=== PATIENT | female | born 1970 | race Hispanic/Latino ===

== ENCOUNTER 2017-11-01 08:08 | Emergency (ER) | payer MEDICARE ==
[2017-11-01 08:18] VITALS: BP 115/78
[2017-11-01] MEDS ORDERED: TYLENOL PO ONE (09:44)
[2017-11-01] MEDS ORDERED: BOOSTRIX IM ONE (09:45)
--- NOTE | 2017-11-01 09:46 | Emergency Department Report ---
ED Head Trauma HPI - General Chief complaint: Fall Stated complaint: HEAD LACERATION Time Seen by Provider: 11/01/17 09:34 Source: patient, family Mode of arrival: Ambulatory Limitations: Physical Limitation - History of Present Illness Initial comments: 47-year-old female past medical history hypertension, schizophrenia presents with laceration to back of scalp status post mechanical fall. Patient has visible large scalp hematoma and laceration back of right scalp. Patient is awake alert and conversant. Accompanied by brush machine setter and father at bedside. Also complaining of left-sided shoulder ache with visible bruising left shoulder. No reports of loss of consciousness per father at bedside who states he was with her when she fell. Patient fell while exiting her home. The back of her head on a wooden guard rail. Tetanus vaccine not up to date. No other complaints reported by patient. Fall occurred today. MD Complaint: head injury, head pain, fall -: This morning Mechanism of Injury: mechanical fall Location: parietal Loss of Consciousness: no Previous Trauma to this Area: No Place: home Severity: moderate Severity scale (0 -10): 7 Consistency: constant Other Injuries: laceration (back of upper scalp) - Related Data Home Medications Medication Instructions Recorded Confirmed Last Taken Divalproex Dr [Depakote] 250 mg PO BID 07/23/13 07/23/13 Unknown Haloperidol [Haldol] 5 mg PO BID 07/23/13 07/23/13 Unknown OLANzapine [ZyPREXA] 5 mg PO QDAY 07/23/13 07/23/13 Unknown Polyethylene Glycol 3350 [Miralax] 510 gm PO 07/23/13 07/23/13 Unknown Previous Rx's Medication Instructions Recorded Last Taken Type Ibuprofen [Motrin 800 MG tab] 800 mg PO TID PRN #30 tablet 07/23/13 Unknown Rx traMADol [Ultram 50 MG tab] 50 mg PO Q6HR PRN #10 tablet 07/23/13 Unknown Rx Bacitracin Zinc Oint [Antibiotic 1 applicatio TP BID #1 tube 11/01/17 Unknown Rx Oint] Cephalexin [Keflex] 500 mg PO Q12HR #14 cap 11/01/17 Unknown Rx HYDROcodone/ACETAMINOPHEN [[place] 1 each PO Q6H PRN #10 tablet 11/01/17 Unknown Rx 5-325 Tablet] Ibuprofen [Motrin] 800 mg PO Q8HR PRN #30 tablet 11/01/17 Unknown Rx Allergies/Adverse reactions: Allergies Allergy/AdvReac Type Severity Reaction Status Date / Time No Known Allergies Allergy Unverified 07/23/13 14:17 ED Review of Systems ROS: Stated complaint: HEAD LACERATION Other details as noted in HPI Constitutional: denies: chills, fever Eyes: denies: eye pain, eye discharge, vision change ENT: denies: ear pain, throat pain Respiratory: denies: cough, shortness of breath, wheezing Cardiovascular: denies: chest pain, palpitations Endocrine: no symptoms reported Gastrointestinal: denies: abdominal pain, nausea, diarrhea Genitourinary: denies: urgency, dysuria, discharge Musculoskeletal: denies: back pain, joint swelling, arthralgia Skin: denies: rash, lesions Neurological: denies: headache, weakness, paresthesias Psychiatric: denies: anxiety, depression Hematological/Lymphatic: denies: easy bleeding, easy bruising ED Past Medical Hx - Past Medical History Previous Medical History?: Yes Hx Hypertension: Yes Additional medical history: MR - Surgical History Past Surgical History?: No - Social History Smoking Status: Never Smoker Substance Use Type: Prescribed - Medications Home Medications: Home Medications Medication Instructions Recorded Confirmed Last Taken Type Divalproex Dr [Depakote] 250 mg PO BID 07/23/13 07/23/13 Unknown History Haloperidol [Haldol] 5 mg PO BID 07/23/13 07/23/13 Unknown History Ibuprofen [Motrin 800 MG tab] 800 mg PO TID PRN #30 tablet 07/23/13 Unknown Rx OLANzapine [ZyPREXA] 5 mg PO QDAY 07/23/13 07/23/13 Unknown History Polyethylene Glycol 3350 [Miralax] 510 gm PO 07/23/13 07/23/13 Unknown History traMADol [Ultram 50 MG tab] 50 mg PO Q6HR PRN #10 tablet 07/23/13 Unknown Rx Bacitracin Zinc Oint [Antibiotic 1 applicatio TP BID #1 tube 11/01/17 Unknown Rx Oint] Cephalexin [Keflex] 500 mg PO Q12HR #14 cap 11/01/17 Unknown Rx HYDROcodone/ACETAMINOPHEN [[place] 1 each PO Q6H PRN #10 tablet 11/01/17 Unknown Rx 5-325 Tablet] Ibuprofen [Motrin] 800 mg PO Q8HR PRN #30 tablet 11/01/17 Unknown Rx ED Physical Exam - General Limitations: Physical Limitation General appearance: alert, in no apparent distress - Expanded Head Exam Expanded Head exam: Present: laceration (deep 3-4 inch laceration to right upper parietal scalp) 1 - Laceration here Y shaped - Eye Eye exam: Present: normal appearance, PERRL, EOMI - ENT ENT exam: Present: mucous membranes moist - Neck Neck exam: Present: normal inspection, full ROM - Respiratory Respiratory exam: Present: normal lung sounds bilaterally. Absent: respiratory distress - Cardiovascular Cardiovascular Exam: Present: regular rate, normal rhythm. Absent: systolic murmur, diastolic murmur, rubs, gallop - GI/Abdominal GI/Abdominal exam: Present: soft, normal bowel sounds - Extremities Exam Extremities exam: Present: normal inspection - Expanded Upper Extremity Exam Right General: Present: other Shoulder Exam: Present: full ROM (range of motion left shoulder preserved abduction abduction and internal and external rotation. Patient is moving independently), tenderness, ecchymosis (tenderness and ecchymosis overlying the left upper shoulder deltoid region) Upper Arm exam: Present: normal inspection, full ROM Elbow exam: Present: normal inspection, full ROM Forearm Wrist exam: Present: normal inspection, full ROM Hand Wrist exam: Present: normal inspection, full ROM Neuro motor exam: Present: wrist extension intact, thumb opposition intact, thumb IP flexion intact, thumb adduction intact, fingers 2-5 abduction intact Vascular: Present: normal capillary refill (distal capillary refill less than one second all fingers patient is moving all of her fingers independently) - Back Exam Back exam: Present: normal inspection - Neurological Exam Neurological exam: Present: alert, oriented X3, CN II-XII intact, normal gait - Psychiatric Psychiatric exam: Present: normal affect, normal mood - Skin Skin exam: Present: warm, dry, intact, normal color. Absent: rash ED Course Vital Signs 11/01/17 08:14 Temperature 97.3 F L Pulse Rate 84 Respiratory 16 Rate Blood Pressure 115/78 O2 Sat by Pulse 96 Oximetry - Laceration /Wound Repair Head Wound Location: head (back of right parietal scalp) Wound Length (cm): 6 Wound's Depth, Shape: linear, irregular Irrigated w/ Saline (ccs): 100 Betadine Prep?: Yes Anesthesia: 1% Lidocaine Volume Anesthetic (ccs): 6 Wound Debrided: minimal Sterile Dressing Applied?: Yes (triple abx with gauze over) Progress: Area infiltrated with lidocaine without epinephrine. Good local anesthesia achieved. 16 tuan placed overlying scalp laceration with good closure. Wound irrigated with approximately 100 mL of saline before closure. Procedure tolerated well minimal bleeding. - Medical Decision Making A/P: Head injury, scalp laceration, left clavicle fracture 1- tetanus updated today. Course of Keflex. Triple antibiotic ointment. Patient's family members and home nurse instructed on wound care 2- 16 tuan placed in scalp with good closure of wound 3- patient experienced a left clavicle fracture as a result of fall. Patient placed in left shoulder sling and referred to orthopedics 4- CT head shows no intracranial hemorrhage or skull fracture, CT neck shows no acute injury. Patient is ranging her left shoulder without significant difficulty. - NEXUS Criteria Focal neurological deficit present: No Midline spinal tenderness present: No Altered level of consciousness: No Intoxication present: No Distracting injury present: Yes NEXUS results: C-Spine cannot be cleared clinically by these results. Imaging is required. Critical care attestation.: If time is entered above; I have spent that time in minutes in the direct care of this critically ill patient, excluding procedure time. ED Disposition Clinical Impression: Laceration of head Qualifiers: Encounter type: initial encounter Location of open wound of head: scalp Foreign body presence: without foreign body Qualified Code(s): S01.01XA - Laceration without foreign body of scalp, initial encounter Closed fracture of distal clavicle Qualifiers: Encounter type: initial encounter Fracture alignment: nondisplaced Laterality: left Qualified Code(s): S42.035A - Nondisplaced fracture of lateral end of left clavicle, initial encounter for closed fracture Abrasion head Qualifiers: Encounter type: initial encounter Qualified Code(s): S00.91XA - Abrasion of unspecified part of head, initial encounter Fall with injury Qualifiers: Encounter type: initial encounter Qualified Code(s): W19.XXXA - Unspecified fall, initial encounter Disposition: DC-01 TO HOME OR SELFCARE Is pt being admited?: No Does the pt Need Aspirin: No Condition: Stable Instructions: Clavicle Fracture (ED), Laceration (ED), Staple Care (ED), RICE Therapy (ED) Additional Instructions: tuan to be removed in 7 days Prescriptions: Bacitracin Zinc Oint [Antibiotic Oint] 1 applicatio TP BID #1 tube Cephalexin [Keflex] 500 mg PO Q12HR #14 cap HYDROcodone/ACETAMINOPHEN [[place] 5-325 Tablet] 1 each PO Q6H PRN #10 tablet PRN Reason: Pain Ibuprofen [Motrin] 800 mg PO Q8HR PRN #30 tablet PRN Reason: Pain Referrals: VIOLET MARSH MD [Staff Physician] - 3-5 Days [facility] [Provider Group] - 3-5 Days Forms: Accompanied Note Time of Disposition: 12:20
--- NOTE | 2017-11-01 10:22 | Cat Scan Report ---
CT HEAD WITHOUT CONTRAST INDICATION: Status post fall. Posterior parietal hematoma with laceration. COMPARISON: 04/19/2012. FINDINGS: Noncontrast head CT again demonstrates symmetric, age-appropriate ventricles and sulci without acute or recent infarct, hemorrhage, mass effect or midline shift. No abnormal extra axial fluid collections. Normal posterior fossa with preserved basilar cisterns. Normal eye globes. Severe, completely opacified right and moderately opacified imaged left maxillary sinus with mild heterogeneously hyperdense intrinsic contents, possibly inspissated secretions and/or fungal. Right more than left ethmoid and frontal sinus mucosal thickening also seen. Chronic bilateral sphenoid sinusitis with mild mucosal thickening on the left. Mild debris/secretions along the nasal passages may also be present. Mild rightward nasal septal deviation anteriorly. Mild left mastoid tip air cell opacification is new. Clear right mastoid air cells. Hyperostosis frontalis interna/mild diffuse calvarial hyperostosis again noted. New high parietal scalp hematomas, right more than left as on axial image 50. Mild ICA atherosclerotic calcifications. CONCLUSION: 1. No acute intracranial CT abnormality. Chronic pansinusitis noted, though with improved overall aeration involving the frontal, ethmoid and sphenoid sinuses, as described. 2. Mild left mastoiditis is new. 3. Right more than left parietal scalp post traumatic changes. Thank you for the opportunity to participate in this patient's care.
[2017-11-01] MEDS ORDERED: TRIPLE ANTIBIOTIC TP ONE (10:40)
--- NOTE | 2017-11-01 11:17 | XRay Report ---
LEFT SHOULDER RADIOGRAPHS INDICATION: Status post fall. Left shoulder bruising and pain. COMPARISON: None similar. FINDINGS: Frontal and Y views of the left shoulder demonstrate a comminuted left distal clavicular fracture with cortical offset of approximately 3 mm craniocaudal on the frontal view. Acromioclavicular articulation may though be preserved. Mild supraclavicular edema possible. Normal humeral head, well positioned against the glenoid. Normal imaged left lung, ribs and scapula. CONCLUSION: Acute left distal clavicular comminuted, mildly displaced fracture, as described. Thank you for the opportunity to participate in this patient's care.
--- NOTE | 2017-11-01 12:09 | Cat Scan Report ---
FINAL REPORT EXAM: CT CERVICAL SPINE WO CON HISTORY: nexus + TECHNIQUE: A noncontrast CT of the cervical spine was performed. Coronal and sagittal reformatted images were obtained. PRIORS: None. FINDINGS: There is no evidence of acute fracture. Vertebral body heights and alignment are maintained. There is no evidence of significant spinal stenosis. There is prominent facet arthropathy mostly involving upper to mid cervical spine, right worse than left. Facet enlargement causes some mild to moderate neuroforaminal narrowing at C3-4 and C4-5. IMPRESSION: There is no evidence of cervical spine fracture or subluxation. Facet arthropathy/enlargement involving upper to mid cervical levels. This causes mild to moderate neuroforaminal narrowing on the right.
== END 2017-11-01 12:43 | disposition home or self-care (01) ==
LOC: ED 08:08
DX: S42.035A Nondisplaced fracture of lateral end of left clavicle, initial encounter for closed fracture (principal); S01.01XA Laceration without foreign body of scalp, initial encounter; S00.91XA Abrasion of unspecified part of head, initial encounter; I10 Essential (primary) hypertension; W19.XXXA Unspecified fall, initial encounter; Y93.89 Activity, other specified; Y99.8 Other external cause status; Y92.098 Other place in other non-institutional residence as the place of occurrence of the external cause
CPT/HCPCS: 70450; 72125; 90471; 90715; A6250

== ENCOUNTER 2017-12-09 09:09 | Outpatient (CLI) | payer MEDICARE ==
--- NOTE | 2017-12-09 09:54 | XRay Report ---
LEFT SHOULDER, 3 VIEWS: History: Nondisplaced fracture of the lateral end of the left clavicle. Findings: The comminuted distal left clavicle fracture is unchanged in position and alignment since 11/01/17. There is increased calcified callus at the fracture site consistent with mild interval healing. Fracture lines remain evident. No joint pathology is appreciated. The soft tissues are unremarkable. Impression: Healing distal left clavicle fracture as described.
== END 2017-12-09 09:10 | disposition home or self-care (01) ==
LOC: XRAY 09:09
PROVIDERS: ATTEND Orthopaedic Surgery
DX: S42.035D Nondisplaced fracture of lateral end of left clavicle, subsequent encounter for fracture with routine healing (principal); X58.XXXD Exposure to other specified factors, subsequent encounter

== ENCOUNTER 2019-05-28 11:39 | Emergency (ER) | payer MEDICARE ==
--- NOTE | 2019-05-28 12:14 | Emergency Department Report ---
ED General Adult HPI - General Chief complaint: Medical Clearance Stated complaint: LOW B/P Time Seen by Provider: 05/28/19 11:57 Source: patient, RN notes reviewed Mode of arrival: Ambulatory Limitations: Other (patient developmentally delayed. History obtained from patient and caregiver) - History of Present Illness Initial comments: Majority of history obtained from patient's caregiver, Ms. Belkis Monzon; [phone] Past medical history: Developmental delay, mental retardation, schizophrenia This is a 49-year-old female. This patient is not known to this provider previously. She is brought to the hospital by caregiver for general evaluation. Apparently, patient was in her daycare program, where she typically resides Tuesday through Tuesday, 8-5, and as per her caregiver, ate some cake, and shortly after eating cake, changed color, became pale, may have been drooling, and appeared to be off balance. This is now resolved. Her caregiver believes that the episode lasted for a few seconds, but she is not sure. There was no co nvulsive activity. There is no discrete loss of consciousness. The patient currently denies headache, neck pain, chest pain, abdominal pain, shortness of breath. The patient indicates normal defecation and bowel movements last night. The patient has no complaint at this time. She is smiling and laughing. Her documented caregiver states that the patient appears to be back to her baseline. -: Sudden Consistency: now resolved Improves with: none Worsens with: none Associated Symptoms: denies other symptoms - Related Data Home Medications Medication Instructions Recorded Confirmed Last Taken Divalproex Dr [Depakote] 250 mg PO BID 07/23/13 07/23/13 Unknown Haloperidol [Haldol] 5 mg PO BID 07/23/13 07/23/13 Unknown OLANzapine [ZyPREXA] 5 mg PO QDAY 07/23/13 07/23/13 Unknown Polyethylene Glycol 3350 [Miralax] 510 gm PO 07/23/13 07/23/13 Unknown Previous Rx's Medication Instructions Recorded Last Taken Type Ibuprofen [Motrin 800 MG tab] 800 mg PO TID PRN #30 tablet 07/23/13 Unknown Rx traMADol [Ultram 50 MG tab] 50 mg PO Q6HR PRN #10 tablet 07/23/13 Unknown Rx Bacitracin Zinc Oint [Antibiotic 1 applicatio TP BID #1 tube 11/01/17 Unknown Rx Oint] HYDROcodone/ACETAMINOPHEN [[place] 1 each PO Q6H PRN #10 tablet 11/01/17 Unknown Rx 5-325 Tablet] Ibuprofen [Motrin] 800 mg PO Q8HR PRN #30 tablet 11/01/17 Unknown Rx cephALEXin [Keflex] 500 mg PO Q12HR #14 cap 11/01/17 Unknown Rx Allergies Allergy/AdvReac Type Severity Reaction Status Date / Time No Known Allergies Allergy Unverified 07/23/13 14:17 ED Review of Systems ROS: Stated complaint: LOW B/P Other details as noted in HPI Constitutional: denies: fever Eyes: denies: eye discharge ENT: denies: epistaxis Respiratory: denies: cough Cardiovascular: denies: chest pain, syncope Gastrointestinal: denies: abdominal pain, hematemesis, melena, hematochezia Genitourinary: denies: dysuria Musculoskeletal: denies: back pain Skin: denies: lesions Neurological: denies: headache ED Past Medical Hx - Past Medical History Hx Hypertension: Yes Additional medical history: MR - Social History Smoking Status: Never Smoker Substance Use Type: Prescribed - Medications Home Medications: Home Medications Medication Instructions Recorded Confirmed Last Taken Type Divalproex Dr [Depakote] 250 mg PO BID 07/23/13 07/23/13 Unknown History Haloperidol [Haldol] 5 mg PO BID 07/23/13 07/23/13 Unknown History Ibuprofen [Motrin 800 MG tab] 800 mg PO TID PRN #30 tablet 07/23/13 Unknown Rx OLANzapine [ZyPREXA] 5 mg PO QDAY 07/23/13 07/23/13 Unknown History Polyethylene Glycol 3350 [Miralax] 510 gm PO 07/23/13 07/23/13 Unknown History traMADol [Ultram 50 MG tab] 50 mg PO Q6HR PRN #10 tablet 07/23/13 Unknown Rx Bacitracin Zinc Oint [Antibiotic 1 applicatio TP BID #1 tube 11/01/17 Unknown Rx Oint] HYDROcodone/ACETAMINOPHEN [[place] 1 each PO Q6H PRN #10 tablet 11/01/17 Unknown Rx 5-325 Tablet] Ibuprofen [Motrin] 800 mg PO Q8HR PRN #30 tablet 11/01/17 Unknown Rx cephALEXin [Keflex] 500 mg PO Q12HR #14 cap 11/01/17 Unknown Rx ED Physical Exam - General Limitations: Other (patient developmentally delayed patient is developmentally delayed) General appearance: alert, in no apparent distress - Head Head exam: Present: atraumatic, normocephalic - Eye Eye exam: Present: normal appearance, EOMI, other (visual acuity intact to finger counting and color perception). Absent: nystagmus - ENT ENT exam: Present: normal exam, normal orophraynx, mucous membranes moist, normal external ear exam - Neck Neck exam: Present: normal inspection, full ROM. Absent: tenderness, meningismus - Respiratory Respiratory exam: Present: normal lung sounds bilaterally. Absent: respiratory distress - Cardiovascular Cardiovascular Exam: Present: regular rate, normal rhythm, normal heart sounds. Absent: bradycardia, tachycardia, irregular rhythm, systolic murmur, diastolic murmur, rubs, gallop - GI/Abdominal GI/Abdominal exam: Present: soft. Absent: distended, tenderness, guarding, rebound, rigid, pulsatile mass - Extremities Exam Extremities exam: Present: normal inspection, full ROM, other (2+ pulses noted in the bilateral upper, lower extremities. Compartments soft. No long bony tenderness. The pelvis is stable.). Absent: pedal edema, calf tenderness - Back Exam Back exam: Present: normal inspection, full ROM. Absent: tenderness, CVA tenderness (R), CVA tenderness (L), paraspinal tenderness, vertebral tenderness - Neurological Exam Neurological exam: Present: alert, oriented X3, normal gait (there is no pass pointing. There is normal [id number]. There is normal gait.), other (Extraocular movements intact. Tongue midline. No facial droop. Facial sen sation intact to light touch in the V1, V2, V3 distribution bilaterally. 5 and 5 strength in 4 extremities.. Sensation is intact to light touch in 4 extremities.). Absent: motor sensory deficit - Psychiatric Psychiatric exam: Present: normal affect, normal mood - Skin Skin exam: Present: warm, dry, intact, normal color. Absent: rash ED Course Vital Signs 05/28/19 05/28/19 05/28/19 11:52 12:00 12:15 Temperature 98.5 F Pulse Rate 73 73 76 Respiratory 15 14 15 Rate Blood Pressure 102/63 112/67 O2 Sat by Pulse 94 96 98 Oximetry - Reevaluation(s) Reevaluation #1: 05/28/19 12:46 Differential diagnosis, including not limited to: TIA, seizure, pneumonia, urinary tract infection, orthostasis, vagal event, dehydration, electrolyte derangement Assessment and plan: 49-year-old female who appears to be at her neurologic baseline is corroborated by caregiver, with a nonfocal neurologic examination, with a GCS of 15, and an NIH score of 0, with endorsed complaint of turning pale, drooling, and appearing to be off balance after eating slices of cake. The patient is afebrile, with reassuring vital signs, and walking with a steady gait. She is pleasant and cooperative, and endorses no complaints of his provider. We will observe the patient, appropriate screening laboratory studies, EKG, CT scan of the brain, and discuss with neurology. 05/28/19 14:49 Reevaluation #2: 05/28/19 12:54 X-ray of the chest is negative. Reevaluation #3: 05/28/19 14:50 The patient is reevaluated multiple times by this provider. No episodes of loss of consciousness. Patient continues to smile, and appears quite comfortable. She continues to have no lateralizing deficits. CT scan of the brain is negative. Objective imaging studies unremarkable. Case is discussed with neurology online community manager, Dr. Alonso who is in agreement that this is very unlikely to be an atypical presentation of a cerebrovascular accident/TIA, given close temporal proximity to contraction every ingestion, this is likely a vagal event. We both agree that outpatient follow-up is a ppropriate, and inpatient hospitalization is not indicated at this time. ED Medical Decision Making - Lab Data Result diagrams: 05/28/19 12:38 05/28/19 12:38 Vital Signs 05/28/19 05/28/19 05/28/19 11:52 12:00 12:15 Temperature 98.5 F Pulse Rate 73 73 76 Respiratory 15 14 15 Rate Blood Pressure 102/63 112/67 O2 Sat by Pulse 94 96 98 Oximetry Lab Results 05/28/19 05/28/19 Range/Units 12:02 12:38 WBC 6.7 (4.5-11.0) K/mm3 RBC 4.27 (3.65-5.03) M/mm3 Hgb 13.4 (10.1-14.3) gm/dl Hct 39.0 (30.3-42.9) % MCV 91 (79-97) fl MCH 31 (28-32) pg MCHC 34 (30-34) % RDW 13.2 (13.2-15.2) % Plt Count 176 (140-440) K/mm3 Lymph % (Auto) 16.9 (13.4-35.0) % Perkins % (Auto) 9.3 H (0.0-7.3) % Eos % (Auto) 2.1 (0.0-4.3) % Baso % (Auto) 0.3 (0.0-1.8) % Lymph # 1.1 L (1.2-5.4) K/mm3 Perkins # 0.6 (0.0-0.8) K/mm3 Eos # 0.1 (0.0-0.4) K/mm3 Baso # 0.0 (0.0-0.1) K/mm3 Seg Neutrophils % 71.4 H (40.0-70.0) % Seg Neutrophils # 4.8 (1.8-7.7) K/mm3 POC Glucose 94 (70-105) - EKG Data -: EKG Interpreted by Pr EKG shows normal: sinus rhythm Rate: normal - EKG Data When compared to previous EKG there are: previous EKG unavailable 05/28/19 12:58 This is a sinus rhythm, 76 bpm, normal axis, QTC prolonged, poor R progression, low voltage, nonspecific T-wave abnormalities, this EKG is abnormal, the EKG is not consistent with ST elevation myocardial infarction. - Radiology Data Radiology results: pending, report reviewed, image reviewed X-ray of the chest interpreted as unremarkable Critical care attestation.: If time is entered above; I have spent that time in minutes in the direct care of this critically ill patient, excluding procedure time. ED Disposition Clinical Impression: General medical exam Disposition: DC-01 TO HOME OR SELFCARE Is pt being admited?: No Does the pt Need Aspirin: No Condition: Good Additional Instructions: Continue outpatient medications. Drink 4-5 cups of water per 24 hours. Avoid sedating medications such as opioids and benzodiazepines and Benadryl. Please follow up with a primary care doctor within the next 3-[address], operate motor [address], and return to the emergency room right away with new, worsening or different symptoms, or symptoms not present on the initial emergency room evaluation. Referrals: PRAMOD VALLEJO MD [Primary Care Provider] - 3-5 Days
--- NOTE | 2019-05-28 12:48 | XRay Report ---
CHEST 1 VIEW 05/28/2019 12:32 PM INDICATION / CLINICAL INFORMATION: Weakness. COMPARISON: None available. FINDINGS: SUPPORT DEVICES: None. HEART / MEDIASTINUM: No significant abnormality. LUNGS / PLEURA: Lungs are underexpanded without focal consolidation or significant effusion. No pneum othorax. ADDITIONAL FINDINGS: No significant additional findings. IMPRESSION: 1. No acute findings. Signer Name: Silvino Ozuna MD Signed: 05/28/2019 12:44 PM Workstation Name: [id number]
[2019-05-28 12:53] LABS: Basophils % (Auto) 0.3 % (0.0-1.8); Eosinophils # (Auto) 0.1 K/mm3 (0.0-0.4); Eosinophils % (Auto) 2.1 % (0.0-4.3); Hemoglobin 13.4 gm/dl (10.1-14.3); Lymphocytes # (Auto) 1.1 K/mm3 (1.2-5.4); Lymphocytes % (Auto) 16.9 % (13.4-35.0); Mean Corpuscular HGB Conc 34 % (30-34); Mean Corpuscular Volume 91 fl (79-97); Monocytes # (Auto) 0.6 K/mm3 (0.0-0.8); Monocytes % (Auto) 9.3 % (0.0-7.3); Platelet Count 176 K/mm3 (140-440); Red Blood Count 4.27 M/mm3 (3.65-5.03); Red Cell Distribution Width 13.2 % (13.2-15.2)
[2019-05-28 13:04] LABS: INR 1.07 (0.87-1.13)
[2019-05-28 13:06] LABS: Partial Thromboplastin Time 24.1 Sec. (24.2-36.6)
[2019-05-28 13:07] LABS: Thrombin Time 17.2 Sec. (15.1-19.6)
[2019-05-28 13:18] LABS: Creatine Kinase MB 2.9 ng/mL (0.0-4.0)
[2019-05-28 13:21] LABS: Alanine Aminotransferase 10 units/L (7-56); Albumin 3.4 g/dL (3.9-5); BUN/Creatinine Ratio 17; Blood Urea Nitrogen 12 mg/dL (7-17); Calcium 8.9 mg/dL (8.4-10.2); Hemolysis Index 4
--- NOTE | 2019-05-28 14:08 | Cat Scan Report ---
CT HEAD WITHOUT CONTRAST INDICATION: Stroke symptoms , history of Down syndrome TECHNIQUE: All CT scans at this location are performed using CT dose reduction for ALARA by means of automated exposure control. COMPARISON: Report of study 11/01/2017 has been reviewed though images are not currently available FINDINGS: BRAIN: No hemorrhage or mass effect are seen. No evidence of acute infarction is noted. ORBITS: Normal as visualized. SOFT TISSUES OF HEAD: Normal. CALVARIUM: Normal. VISUALIZED PARANASAL SINUSES AND MASTOID AIR CELLS: There is near opacification of all of the paranas al sinuses with only minimal aeration is seen in the ethmoid sinuses bilaterally. No air-fluid levels are seen. No obvious bony erosion is identified. Mastoid air cells are aerated. ADDITIONAL FINDINGS: None. IMPRESSION: No acute intracranial abnormality. Continued prominent sinus abnormality. Signer Name: Gregorio Jose MD Signed: 05/28/2019 2:04 PM Workstation Name: [id number]
--- NOTE | 2019-05-28 14:21 | Cat Scan Report ---
CT abdomen pelvis wo con INDICATION / CLINICAL INFORMATION: Weakness after eating cake. TECHNIQUE: All CT scans at this location are performed using CT dose reduction for ALARA by means of automated e xposure control. COMPARISON: None available. FINDINGS: ABDOMEN: There are multiple calcified stones throughout a mildly contracted gallbladder. The liver, s pleen, bile ducts, pancreas, adrenal glands and kidneys demonstrate no significant abnormality. There is a large amount stool throughout the colon without focal fecal impaction. I see no evidence of bow el obstruction, wall thickening or free air. No adenopathy is identified. There is a tiny calcified g ranuloma in the right middle lobe. There is a trace amount of pleural fluid bilaterally. PELVIS: The distal ureters and urinary bladder are normal. The uterus and adnexal regions are unremar kable. A normal appendix is present and there is no evidence of diverticulitis. No abnormal mass or f luid collection is seen. I do not identify a hernia. No acute osseous abnormality is seen. IMPRESSION: 1. Cholelithiasis without CT evidence of acute cholecystitis. 2. Large amount of stool throughout the colon. No evidence of fecal impaction or bowel obstruction. Signer Name: Alexy Cope MD Signed: 05/28/2019 2:16 PM Workstation Name: [id number]
[2019-05-28 14:39] LABS: Bilirubin,Urine NEG (Negative); Blood,Urine NEG (Negative); Color,Urine Yellow (Yellow); Mucus,Urine FEW /HPF; Protein,Urine <15 mg/dL mg/dL (Negative); RBC,Urine < 1.0 /HPF (0.0-6.0); Urobilinogen,Urine < 2.0 mg/dL (<2.0)
[2019-05-28 15:54] VITALS: BP 118/65
== END 2019-05-28 15:54 | disposition home or self-care (01) ==
LOC: ED 11:39
DX: Z00.8 Encounter for other general examination (principal); I10 Essential (primary) hypertension; Z79.899 Other long term (current) drug therapy
CPT/HCPCS: 36415; 70450; 71045; 74176; 80053; 80164; 81001; 82550; 82553; 82962; 83735; 84484; 85025; 85610; 85670; 85730; 93005; 93010; 99285